=== PATIENT | female | born 1985 | race Caucasian/White ===

== ENCOUNTER → 2017-07-24 | Outpatient (CLI) | payer OTHER ==
[2017-07-24 09:45] LABS: BLOOD UREA NITROGEN 8 mg/dL (7-18); CALCIUM 8.4 mg/dL (8.5-10.1); CHLORIDE 103 mmol/L (98-107); CREATININE 0.51 mg/dL (0.55-1.02); SODIUM 137 mmol/L (136-145); eGFR BLACK RACES > 60 (>60); eGFR NON BLACK RACES > 60 (>60)
[2017-07-24 09:46] LABS: BILIRUBIN,URINE NEGATIVE (NEGATIVE); BLOOD/HEMOGLOBIN,URINE NEGATIVE (NEGATIVE); GLUCOSE, URINE NEGATIVE (NEGATIVE); KETONES,URINE NEGATIVE (NEGATIVE); LEUKOCYTE ESTERASE ,URINE 1+ (NEGATIVE); NITRITES,URINE NEGATIVE (NEGATIVE); PROTEIN,URINE NEGATIVE (NEGATIVE); UROBILINOGEN,URINE NORMAL (NORMAL)
[2017-07-24 09:55] LABS: APPEARANCE,URINE CLEAR (CLEAR); COLOR,URINE YELLOW (YELLOW); RBC,URINE 0-2 /HPF (NONE SEEN); SQUAMOUS EPITHELIAL CELL,UR FEW /HPF (NEGATIVE)
[2017-07-24 09:56] LABS: BASOPHILS % (AUTO) 0.3 % (0.2-1.0); EOSINOPHILS # (AUTO) 0.1 x10^3/uL (0.0-0.2); EOSINOPHILS % (AUTO) 1.1 % (0.9-2.9); HEMATOCRIT 30.7 % (36.0-47.0); HEMOGLOBIN 10.2 g/dL (12.0-16.0); LYMPHOCYTES # (AUTO) 1.5 X10^3/uL (1.3-2.9); LYMPHOCYTES % (AUTO) 17.2 % (21.0-51.0); MEAN CORPUSCULAR HEMOGLOBIN 28.8 pg (27.0-34.0); MEAN CORPUSCULAR HGB CONC 33.3 g/dL (33.0-35.0); MEAN CORPUSCULAR VOLUME 86.4 fL (80.0-100.0); MEAN PLATELET VOLUME 10.5 fL (7.4-11.0); MONOCYTES # (AUTO) 0.6 x10^3/uL (0.3-0.8); MONOCYTES % (AUTO) 7.2 % (0.0-13.0); NEUTROPHILS # (AUTO) 6.3 x10^3/uL (2.2-4.8); NEUTROPHILS % (AUTO) 74.2 % (42.0-75.0); PLATELET COUNT 237 X10^3/uL (150.0-450.0); RED BLOOD COUNT 3.55 X10^6/uL (3.5-5.4); RED CELL DISTRIBUTION WIDTH 14.8 % (11.6-16.5); WHITE BLOOD COUNT 8.5 X10^3/uL (3.6-10.0)
[2017-07-24 09:56] LABS: BACTERIA,URINE NEGATIVE /HPF (NEGATIVE)
== END ==
LOC: LAB 08:53
PROVIDERS: ATTEND Specialist
DX: Z01.818 Encounter for other preprocedural examination (principal); Z34.83 Encounter for supervision of other normal pregnancy, third trimester
CPT/HCPCS: 36415; 80048; 80307; 81001; 85025; 86592; 86850; 86900; 86901; G0434

== ENCOUNTER 2017-07-26 06:29 | Inpatient (IN) | payer OTHER ==
[2017-07-26] MEDS ORDERED: PHENERGAN INJ 25 MG IV PRN ×3 (06:35→13:28)
[2017-07-26] MEDS ORDERED: D5 1/2 NS 1000 ML 1,000 ML IV SCH (06:35)
[2017-07-26] MEDS ORDERED: NUBAIN INJ 200 MG VIAL MULTIDOSE IVP PRN (06:35)
[2017-07-26] MEDS ORDERED: REGLAN INJ 10 MG VIAL IVP PRN ×2 (06:35→13:28)
[2017-07-26] MEDS ORDERED: D5LR 1L W PITOCIN 10 UNITS/L 10 UNITS/1,000 ML BAG IV PRN (06:35)
[2017-07-26] MEDS ORDERED: MORPHINE SULFATE INJ 2 MG INJ IVP PRN (06:35)
[2017-07-26] MEDS ORDERED: PITOCIN IVP ONE (06:35)
[2017-07-26] MEDS ORDERED: LR 1000 ML IV 1,000 ML IV ONE ×3 (06:37→10:41)
[2017-07-26] MEDS ORDERED: D5 1/2 NS 1L W PITOCIN 20 UNITS/L 20 UNITS/1,000 ML BAG IV ONE (06:38)
--- NOTE | 2017-07-26 07:17 | DR.OB ---
OB Quick Note - Assessment/Plan Assessment/Plan: L&D 07/26/17 at 7:00am S-No complaint. O-Afebrile,VSS CXJ=276 with good LTV, +accel, no decel. CTX=none CVX=2cm/50%/-1/VTX AROM with clear fluid. IUPC and FSE placed. A-IUP at 39 0/7 weeks for induction P-Begin pitocin induction Anticipate
[2017-07-26] MEDS ORDERED: NAROPIN EPIDURAL 0.2% 97 ML with FENTANYL INJ 250 mcg 150 MCG EPI PRN ×2 (08:21)
[2017-07-26] MEDS ORDERED: FENTANYL INJ 100 mcg ONE (10:05)
[2017-07-26] MEDS ORDERED: NAROPIN EPIDURAL 0.2% + FENTANYL 90MCG 60 ML EPI ONE (10:05)
[2017-07-26] MEDS ORDERED: MOTRIN TAB 800 MG PO PRN ×2 (11:58→13:28)
--- NOTE | 2017-07-26 11:58 | DR.OB ---
OB Quick Note - Assessment/Plan Assessment/Plan: Delivery Note [employer]ICE [employer] 07/26/17 at 11:46am Patient complete and pushing. Head delivered over intact perineum. Nuchal cord x 1 reduced and loose. Nose and mouth bulb suctioned. Body delivered over intact perineum. Cord clamped x 2 and cut. Infant handed to attendant. Cord sent for gases. Placenta delivered spontaneously / intact / 3 vessel cord. No CVX / vaginal / perineal tears noted. Viable female infant, VTX/OA, wt=7'9" and 9/9, stable to NBN. Mother stable to RR. XEO=172sl.
[2017-07-26] MEDS ORDERED: D5 1/2 NS 1000 ML 1,000 ML with PITOCIN 20 UNITS IV SCH ×2 (12:00)
[2017-07-26] MEDS ORDERED: AMBIEN PO PRN (13:28)
[2017-07-26] MEDS ORDERED: DERMOPLAST SPRAY TOP PRN (13:28)
[2017-07-26] MEDS ORDERED: MILK OF MAGNESIA PO PRN (13:28)
[2017-07-26] MEDS ORDERED: ADACEL TDaP IM ONE (13:28)
[2017-07-26] MEDS: D5 1/2 NS 1000 ML 1,000 ML with PITOCIN 20 UNITS IV SCH ×2 (15:27)
[2017-07-26] MEDS: ZANTAC PO SCH (21:15)
[2017-07-27] MEDS: D5 1/2 NS 1000 ML 1,000 ML with PITOCIN 20 UNITS IV SCH ×6 (01:19→12:34)
[2017-07-27 05:59] LABS: HEMATOCRIT 29.6 % (36.0-47.0)
[2017-07-27] MEDS ORDERED: PRENATAL PLUS PO SCH (09:00)
[2017-07-27] MEDS: ZANTAC PO SCH (09:41)
[2017-07-27 12:38] VITALS: BP 131/80
== END 2017-07-27 13:40 | disposition home or self-care (01) | DRG 775 ==
LOC: LD 06:29 → MED/SURG 13:27
PROVIDERS: ADMIT Specialist; ATTEND Specialist
PROC: 10E0XZZ Delivery of Products of Conception, External Approach (ICD-10-PCS; principal; 2017-07-26)
PROC: 10907ZC Drainage of Amniotic Fluid, Therapeutic from Products of Conception, Via Natural or Artificial Opening (ICD-10-PCS; 2017-07-26)
PROC: 3E033VJ Introduction of Other Hormone into Peripheral Vein, Percutaneous Approach (ICD-10-PCS; 2017-07-26)
PROC: 00HU33Z Insertion of Infusion Device into Spinal Canal, Percutaneous Approach (ICD-10-PCS; 2017-07-26)
PROC: 3E0234Z Introduction of Serum, Toxoid and Vaccine into Muscle, Percutaneous Approach (ICD-10-PCS; 2017-07-26)
DX: O26.893 Other specified pregnancy related conditions, third trimester (principal); Z37.0 Single live birth; Z3A.39 39 weeks gestation of pregnancy; Z23 Encounter for immunization
CPT/HCPCS: 09167; 36415; 59409; 80048; 80307; 81001; 85014; 85018; 85025; 86592; 86850; 86900; 86901; A4216; A4222; S0197; G0434; J2590; J3010; J7042; J7120